=== PATIENT | female | born 1990 | race Caucasian/White ===

== ENCOUNTER 2017-03-08 02:06 | Emergency (ER) | payer BC ==
[2017-03-08] MEDS ORDERED: Sodium Chloride 0.9% 10 ML Syringe FLUSH PRN (02:50)
[2017-03-08] MEDS ORDERED: diphenhydrAMINE 50 MG/ML SDV IVPUSH PRN (02:52)
[2017-03-08] MEDS ORDERED: Metoclopramide 10 MG/2 ML SDV IVPUSH ONE (02:53)
[2017-03-08] MEDS ORDERED: Ketorolac 30 MG/ML SDV IVPUSH ONE (02:54)
[2017-03-08] MEDS ORDERED: Sodium Chloride 0.9% 1,000 ML IV SCH (03:15)
[2017-03-08 04:13] VITALS: BP 124/82
[2017-03-08] MEDS ORDERED: LORazepam 1 MG Tab PO ONE (05:04)
--- NOTE | 2017-03-11 13:48 | ER ---
DATE SEEN: 03/08/2017 CHIEF COMPLAINT: Headache. HISTORY OF PRESENT ILLNESS: This single, nonsmoking 26-year-old had onset of headache at 2300 hours this evening. It is 8/10 in intensity. Generalized headache. Does not compromise her vision. She had mild associated nausea. Denies recent trauma, increased social stresses, difficulty sleeping, neck stiffness, sore throat, sinusitis, eye pain, blurred vision, teichopsia, or visual complaints including blurred vision, photophobia or phonophobia, shortness of breath, fast heart rate, flushing, weakness, paresis, numbness, or sensory changes in her body. Last headache was approximately September 2016. She does not have any menstrual period currently. Her menses are regular. PAST MEDICAL HISTORY: Significant for anti-depressant and occasional difficulty with sleep. MEDICATIONS: 1. Zaleplon 10 mg at bedtime. 2. Cymbalta 90 mg daily. REVIEW OF SYSTEMS: Otherwise negative. PHYSICAL EXAMINATION: VITAL SIGNS: Blood pressure 137/84, heart rate 74, respirations 20, oxygen saturation 100%, and temperature 34.7 degrees centigrade. Repeat temperature is 36.4 degrees centigrade. BMI 31.9 (95.254 kg). GENERAL: Alert patient, in mild distress. HEENT: PERRLA intact. Pharynx without abnormality. No dry mucosa. No thyromegaly. No cervical adenopathy. Mild facial acne with recent manipulation of comedones. No nasal redness. NECK: Supple. LUNGS: Clear to auscultation without rales, rhonchi, or wheezes. HEART: S1, S2. No murmur. No irregular rate and rhythm. ABDOMEN: Soft. No guarding. No abdominal discomfort. Mild increased abdominal girth. EXTREMITIES: Lower extremities without tenderness or vascular structures. NEUROLOGIC: Deep tendon reflexes in upper and lower extremities symmetrical, 1+. Normoactive. Cranial nerves II through XII intact. Oriented x3. No past-pointing. No dysmetria. No pronator drift and Romberg is negative. Gait is appropriate. Balance is good. ASSESSMENT: Migraine. PLAN: The patient was treated with IV Reglan 10 mg, Toradol 10 mg, Benadryl 50 mg IV. The patient tolerated this well. She had a 1000 mL normal saline. Headache went down to a 1/10 in intensity. She was grateful. She was dismissed with medication to use in the future, Reglan 10 mg p.o., Toradol 10 mg p.o., Benadryl [id number] 50 mg p.o., take 3 tablets stat onset of headache and rest. She is advised to drink 2 L of water a day and get plenty of sleep and modulate stresses. Follow up with doctor in a week, earlier if worse. Also, there was a delay in discharging the patient as there was glitch in the computers, I was unable to get on the computers for 10 plus minutes. /[id number] SU/PHUC
== END 2017-03-08 04:20 | disposition home or self-care (01) ==
LOC: FB.ED 02:06
DX: G43.909 Migraine, unspecified, not intractable, without status migrainosus (principal); Z79.899 Other long term (current) drug therapy
CPT/HCPCS: 96361; 96374; 96375; 99284; J1200; J1885; J2765; J7040; J7050

== ENCOUNTER 2019-02-08 21:45 | Emergency (ER) | payer MEDICAID ==
[2019-02-08] MEDS ORDERED: HYDROmorphone 2 MG/ML SDV IVPUSH ONE (22:03)
[2019-02-08] MEDS ORDERED: Ondansetron 4 MG/2 ML SDV IVPUSH ONE (22:03)
--- NOTE | 2019-02-08 22:03 | EDM.PDOC ---
ED HPI GENERAL MEDICAL PROBLEM - General Chief Complaint: Headache Stated Complaint: MIGRAINE Time Seen by Provider: 02/08/19 21:55 - History of Present Illness INITIAL COMMENTS - FREE TEXT/NARRATIVE: pt c/o sever bilateral throbbing HAs, similar to usual migraine that she gets about once every 2 weeks, pt report nausea, no emeis, denies fever chills neck stiffness or any other associated sx or concerns. pt has been working closely with her PCP , was prescribed Zomeg which worked for her but she does not have it as its not covered by her insurance. - Related Data Allergies Allergy/AdvReac Type Severity Reaction Status Date / Time No Known Allergies Allergy Verified 03/08/17 02:17 Home Meds: Home Meds .Bariatric Adv Calcium/D3 1 dose PO ASDIRECTED 02/08/19 [History] ClonazePAM [KlonoPIN] 0.5 mg PO ASDIRECTED 02/08/19 [History] DULoxetine [Cymbalta] 120 mg PO DAILY 02/08/19 [History] Gabapentin [Neurontin] 100 mg PO 02/08/19 [History] Gabapentin [Neurontin] 300 mg PO BEDTIME 02/08/19 [History] Topiramate 100 mg PO BID 02/08/19 [History] busPIRone [Buspar] 20 mg PO DAILY 02/08/19 [History] busPIRone [Buspar] 30 mg PO BEDTIME 02/08/19 [History] Past Medical History Musculoskeletal History: Reports: Back Pain, Chronic, Fibromyalgia, Neck Pain, Chronic, Other (See Below) Other Musculoskeletal History: Anklylosing spondylitis of lumbosacral region Neurological History: Reports: Headaches, Chronic Social & Family History - Caffeine Use Caffeine Use: Reports: Coffee, Soda ED ROS GENERAL - Review of Systems Review Of Systems: See Below Constitutional: Denies: Fever, Chills HEENT: Reports: No Symptoms Respiratory: Reports: No Symptoms Cardiovascular: Reports: No Symptoms GI/Abdominal: Reports: No Symptoms Musculoskeletal: Reports: No Symptoms Neurological: Reports: Headache. Denies: Dizziness, Seizure, Syncope, Tingling , Trouble Speaking, Difficulty Walking, Change in Speech, Gait Disturbance - Physical Exam Exam: See Below Exam Limited By: No Limitations General Appearance: Alert, Moderate Distress Eye Exam: Bilateral Eye: Normal Inspection Ears: Normal External Exam, Normal Canal Nose: Normal Inspection, Normal Mucosa Throat/Mouth: Normal Inspection Head Exam: Atraumatic, Normocephalic. No: Facial Swelling, Facial Tenderness, Sinus Tenderness Neck: Normal Inspection, Supple, Non-Tender Respiratory/Chest: No Respiratory Distress, Lungs Clear Cardiovascular: Normal Peripheral Pulses, Regular Rate, Rhythm GI/Abdominal: Normal Bowel Sounds, Soft, Non-Tender Rectal (Female) Exam: Other Neuro Exam (Abbreviated): Alert, Oriented, CN II-XII Intact, Normal Gait, Normal Reflexes, No Motor/Sensory Deficits Course - Vital Signs Text/Narrative:: pt has recurrent migrain, was given NS 1 letter , dilaudid 1 mg and zofran , pt feels comfortable after this. - Orders/Labs/Meds Orders: Active Orders 24 hr Category Date Time Status Sodium Chloride 0.9% [Normal Saline] 1,000 ml Med 02/08/19 22:15 Active IV ASDIRECTED Sodium Chloride 0.9% [Saline Flush] Med 02/08/19 22:25 Active 10 ml FLUSH ASDIRECTED PRN Medication Orders Sodium Chloride (Normal Saline) 1,000 mls @ 999 mls/hr IV ASDIRECTED TRISTON Last Admin: 02/08/19 22:30 Dose: 999 mls/hr Sodium Chloride (Saline Flush) 10 ml FLUSH ASDIRECTED PRN PRN Reason: Keep Vein Open Last Admin: 02/08/19 22:25 Dose: 10 ml Meds: Medications Generic Name Dose Route Start Last Admin Trade Name Freq PRN Reason Stop Dose Admin Sodium Chloride 1,000 mls @ 999 mls/hr 02/08/19 22:15 02/08/19 22:30 Normal Saline IV 999 mls/hr ASDIRECTED TRISTON Administration Sodium Chloride 10 ml 02/08/19 22:25 02/08/19 22:25 Saline Flush FLUSH 10 ml ASDIRECTED PRN Administration Keep Vein Open Discontinued Medications Generic Name Dose Route Start Last Admin Trade Name Freq PRN Reason Stop Dose Admin Hydromorphone HCl 1 mg 02/08/19 22:03 02/08/19 22:25 Dilaudid IVPUSH 02/08/19 22:04 1 mg ONETIME ONE Administration Ondansetron HCl 4 mg 02/08/19 22:03 02/08/19 22:35 Zofran IVPUSH 02/08/19 22:04 4 mg ONETIME ONE Administration Departure - Departure Time of Disposition: 22:55 Disposition: Home, Self-Care 01 Clinical Impression: Migraine - Discharge Information Referrals: PCP,Not In Area [Primary Care Provider] - Forms: ED Department Discharge - Problem List & Annotations (1) Migraine SNOMED Code(s): 87065610 Code(s): G43.909 - MIGRAINE, UNSP, NOT INTRACTABLE, WITHOUT STATUS MIGRAINOSUS Status: Acute Current Visit: Yes - My Orders Last 24 Hours: My Active Orders 02/08/19 22:15 Sodium Chloride 0.9% [Normal Saline] 1,000 ml IV ASDIRECTED 02/08/19 22:25 Sodium Chloride 0.9% [Saline Flush] 10 ml FLUSH ASDIRECTED PRN - Assessment/Plan Last 24 Hours: My Active Orders 02/08/19 22:15 Sodium Chloride 0.9% [Normal Saline] 1,000 ml IV ASDIRECTED 02/08/19 22:25 Sodium Chloride 0.9% [Saline Flush] 10 ml FLUSH ASDIRECTED PRN
[2019-02-08] MEDS ORDERED: Sodium Chloride 0.9% 1,000 ML IV SCH (22:15)
[2019-02-08] MEDS ORDERED: Sodium Chloride 0.9% 10 ML Syringe FLUSH PRN (22:25)
[2019-02-08 23:38] VITALS: BP 129/72
== END 2019-02-08 23:50 | disposition home or self-care (01) ==
LOC: FB.ED 21:45
DX: G43.909 Migraine, unspecified, not intractable, without status migrainosus (principal); Z79.899 Other long term (current) drug therapy
CPT/HCPCS: 96361; 96374; 96375; 99283; J1170; J2405; J7030

== ENCOUNTER 2021-04-01 19:24 | Emergency (ER) | payer MEDICARE, MEDICAID ==
[2021-04-01 19:34] VITALS: BP 134/88; PULSE 94
--- NOTE | 2021-04-01 20:08 | EDM.PDOC ---
ED HPI GENERAL MEDICAL PROBLEM - General Chief Complaint: Lower Extremity Injury/Pain Stated Complaint: BROKEN ANKLE. Time Seen by Provider: 04/01/21 19:35 Source of Information: Reports: Patient History Limitations: Reports: No Limitations - History of Present Illness INITIAL COMMENTS - FREE TEXT/NARRATIVE: Patient presented to the ED because of a right ankle and foot injury. She was apparently going downstairs and twisted her rt ankle and foot. She c/7/10 pain that is worse with ambulation. Right Ankle Pain Score (Numeric/FACES): 4 - Related Data Allergies Allergy/AdvReac Type Severity Reaction Status Date / Time hydromorphone Allergy Headache Verified 04/01/21 19:30 Home Meds: Home Meds .Bariatric Adv Calcium/D3 1 dose PO ASDIRECTED 02/08/19 [History] .Co Q 10 1 dose PO DAILY 02/08/19 [History] .Zyrtec Allergy 1 dose PO DAILY 02/08/19 [History] Adalimumab [Humira(Cf)] 1 dose SUBCUT ASDIRECTED 02/08/19 [History] ClonazePAM [KlonoPIN] 0.5 mg PO DAILY PRN 02/08/19 [History] DULoxetine [Cymbalta] 120 mg PO DAILY 02/08/19 [History] Fluticasone Propionate [Flonase] 1 spray NASBOTH BID 02/08/19 [History] Gabapentin [Neurontin] 100 mg PO 12,02/08/19 [History] Gabapentin [Neurontin] 300 mg PO 22 02/08/19 [History] Meloxicam 15 mg PO DAILY 02/08/19 [History] Topiramate 100 mg PO BID 02/08/19 [History] Vitamin B Complex 1 tab PO DAILY 02/08/19 [History] busPIRone [Buspar] 20 mg PO DAILY 02/08/19 [History] busPIRone [Buspar] 30 mg PO BEDTIME 02/08/19 [History] Past Medical History Musculoskeletal History: Reports: Back Pain, Chronic, Fibromyalgia, Neck Pain, Chronic, Other (See Below) Other Musculoskeletal History: Anklylosing spondylitis of lumbosacral region Neurological History: Reports: Headaches, Chronic Social & Family History - Tobacco Use Tobacco Use Status *Q: Never Tobacco User - Caffeine Use Caffeine Use: Reports: Coffee, Soda - Recreational Drug Use Recreational Drug Use: No Review of Systems - Review of Systems Review Of Systems: See Below Constitutional: Reports: No Symptoms Eyes: Reports: No Symptoms Ears: Reports: No Symptoms Nose: Reports: No Symptoms Mouth/Throat: Reports: No Symptoms Respiratory: Reports: No Symptoms Cardiovascular: Reports: No Symptoms GI/Abdominal: Reports: No Symptoms Genitourinary: Reports: No Symptoms Musculoskeletal: Reports: Joint Pain Skin: Reports: No Symptoms Neurological: Reports: No Symptoms Psychiatric: Reports: No Symptoms ED EXAM, GENERAL - Physical Exam Exam: See Below Exam Limited By: No Limitations General Appearance: Alert, No Apparent Distress Eye Exam: Bilateral Eye: PERRL Ears: Normal External Exam, Normal Canal Nose: Normal Inspection, Normal Mucosa, No Blood Throat/Mouth: Normal Inspection, Normal Lips, Normal Teeth Head: Atraumatic, Normocephalic Neck: Normal Inspection, Supple, Non-Tender, Full Range of Motion Respiratory/Chest: No Respiratory Distress, Lungs Clear, Normal Breath Sounds Cardiovascular: Normal Peripheral Pulses, Regular Rate, Rhythm, No Edema, No Gallop GI/Abdominal: Normal Bowel Sounds, Soft, Non-Tender Back Exam: Normal Inspection, Full Range of Motion Extremities: Normal Inspection, Normal Range of Motion, Other (tenderness Rt 5th metatarsal area and lateral aspect of right ankle) Neurological: Alert, Oriented, CN II-XII Intact Psychiatric: Normal Affect, Normal Mood Course - Vital Signs Text/Narrative:: Xray RT ankle/foot-Rt 5th metatarsal fracture-see result Crutches and air cast applied by ED RN Last Recorded V/S: Last Vital Signs Temp 36.4 C 04/01/21 19:30 Pulse 94 04/01/21 19:30 Resp 18 04/01/21 19:30 BP 134/88 04/01/21 19:30 Pulse Ox 99 04/01/21 19:30 Departure - Departure Time of Disposition: 20:10 Disposition: Home, Self-Care 01 Condition: Good Clinical Impression: Metatarsal bone fracture - Discharge Information Instructions: Ankle Sprain, [id number], Metatarsal Fracture Referrals: Rose Mary Jain [employer] [Primary Care Provider] - Forms: ED Department Discharge Additional Instructions: Please read discharge instructions on metatarsal fracture Use your crutches at all times Do not step on your right foot until the pain is completely gone Take ibuprofen 800 mg with tylenol 1000 mg every 8 hours as needed for pain We will call you tomorrow if there is any changes on your xray reading Follow up with Ortho at [place] Sepsis Event Note (ED) - Evaluation Sepsis Screening Result: No Definite Risk
--- NOTE | 2021-04-02 13:04 | CR ---
INDICATION: Stepped wrong with right foot and ankle injury. RIGHT ANKLE [id number]: Three views of the right ankle were obtained 04/01/21-no comparison. The ankle mortise appeared to be intact with fairly symmetrical joint space. The talar dome appears to be intact. Minimal soft tissue swelling may be present along the medial malleolus. A definite acute fracture or dislocation was not identified. If symptoms persist-if occult fracture site is suspected clinically, re- examination in 10 to 14 days may be helpful. MTDD
--- NOTE | 2021-04-02 13:09 | CR ---
INDICATION: Lateral foot pain after injury. RIGHT FOOT: Three views of the right foot were obtained 04/01/21 and revealed hairline fracture transversely through the proximal metaphysis of the fifth metatarsal, which extends through the joint surface, but shows no significant deformity. No other bone or joint abnormality was identified. IMPRESSION: Fifth metatarsal fracture site in good position and alignment. MTDD
== END 2021-04-01 20:33 | disposition home or self-care (01) ==
LOC: FB.ED 19:24
DX: S92.351A Displaced fracture of fifth metatarsal bone, right foot, initial encounter for closed fracture (principal); Z88.5 Allergy status to narcotic agent; X50.1XXA Overexertion from prolonged static or awkward postures, initial encounter
CPT/HCPCS: 73610-RT; 73630-RT; 99283-25

== ENCOUNTER 2021-04-13 03:19 | Emergency (ER) | payer MEDICARE, MEDICAID ==
--- NOTE | 2021-04-13 04:15 | EDM.PDOC ---
ED HPI GENERAL MEDICAL PROBLEM - General Chief Complaint: Back Pain or Injury Stated Complaint: side/back pain Time Seen by Provider: 04/13/21 03:45 Source of Information: Reports: Patient History Limitations: Reports: No Limitations - History of Present Illness INITIAL COMMENTS - FREE TEXT/NARRATIVE: c/o L side pain x 6h at 9p last night pt has had pain in her L side, no cramping, no radiation, gotten worse, no BM yesterday and she took Miralax that her sister had, still no BM no h/o constipation LMP 2w ago, 4d flow as usual, no BC, regular, monthly no vag d/c, no dysuria fell 1w ago, XR L foot neg, went to ortho in [place], pt says she has a fx in her 5th MT, on crutches x 1w with a compression sock (no splint, no cast), changed yesterday to a walking boot MPMP neg x last year except gabapentin which she fills 60 tabs, 300 mg monthly PCP Rose Mary Jain [employer] HEL[employer] in [place] MEDS: includes duloxetine, buspar, topiramate, meloxicam, gabapentin PMH: includes fibromyalgia Left Back Pain Score (Numeric/FACES): 10 - Related Data Allergies Allergy/AdvReac Type Severity Reaction Status Date / Time hydromorphone Allergy Headache Verified 04/01/21 19:30 suvorexant [From Belsomra] Allergy Nausea Verified 04/13/21 03:41 Home Meds: Home Meds .Bariatric Adv Calcium/D3 1 dose PO ASDIRECTED 02/08/19 [History] .Co Q 10 1 dose PO DAILY 02/08/19 [History] .Zyrtec Allergy 1 dose PO DAILY 02/08/19 [History] DULoxetine [Cymbalta] 120 mg PO DAILY 02/08/19 [History] Gabapentin [Neurontin] 100 mg PO ,02/08/19 [History] Gabapentin [Neurontin] 300 mg PO 22 02/08/19 [History] Meloxicam 15 mg PO DAILY 02/08/19 [History] Topiramate 100 mg PO BID 02/08/19 [History] Vitamin B Complex 1 tab PO DAILY 02/08/19 [History] busPIRone [Buspar] 20 mg PO DAILY 02/08/19 [History] busPIRone [Buspar] 30 mg PO BEDTIME 02/08/19 [History] Hydrocodone/Acetaminophen [HYDROcodone-Acetaminophen 5-325 MG] 1 each PO Q6H #12 tablet 04/13/21 [Rx] Ketorolac [Toradol] 10 mg PO QID #20 tab 04/13/21 [Rx] Past Medical History - Past Health History Medical/Surgical History: Denies Medical/Surgical History Musculoskeletal History: Reports: Back Pain, Chronic, Fibromyalgia, Neck Pain, Chronic, Other (See Below) Other Musculoskeletal History: Anklylosing spondylitis of lumbosacral region Neurological History: Reports: Headaches, Chronic - Past Surgical History Other Musculoskeletal Surgeries/Procedures:: Broke 5th metatarsal Social & Family History - Family History Family Medical History: No Pertinent Family History - Tobacco Use Tobacco Use Status *Q: Never Tobacco User - Caffeine Use Caffeine Use: Reports: Soda - Recreational Drug Use Recreational Drug Use: No ED ROS GENERAL - Review of Systems Review Of Systems: See Below Constitutional: Reports: No Symptoms HEENT: Reports: No Symptoms Respiratory: Reports: No Symptoms Cardiovascular: Reports: No Symptoms Endocrine: Reports: No Symptoms GI/Abdominal: Reports: Abdominal Pain. Denies: Nausea, Vomiting : Reports: No Symptoms Musculoskeletal: Reports: No Symptoms Skin: Reports: No Symptoms Neurological: Reports: No Symptoms Psychiatric: Reports: No Symptoms Hematologic/Lymphatic: Reports: No Symptoms Immunologic: Reports: No Symptoms ED EXAM, GI/ABD - Physical Exam Exam: See Below Exam Limited By: No Limitations General Appearance: Alert, WD/WN Throat/Mouth: Perioral Cyanosis Head: Atraumatic Neck: Normal Inspection Respiratory/Chest: No Respiratory Distress Cardiovascular: Regular Rate, Rhythm GI/Abdominal Exam: Other (inc'd adipose tissue, abd nontender throughout, L flank NT to deep palp, no CVAT b/l, no spine tender, sat/stood/walk/lay without hesitation or difficulty) Extremities: Normal Inspection, Non-Tender, No Pedal Edema Neurological: Alert, Oriented, CN II-XII Intact, Normal Cognition, No Motor/Sensory Deficits Skin Exam: Warm, Dry, Intact, Normal Color, No Rash Lymphatic: No Adenopathy Course - Vital Signs Last Recorded V/S: Last Vital Signs Temp 36.9 C 04/13/21 03:30 Pulse 90 07/23/21 03:30 Resp 16 04/13/21 03:30 BP 149/87 H 04/13/21 03:30 Pulse Ox 100 04/13/21 03:30 - Orders/Labs/Meds Orders: Active Orders 24 hr Category Date Time Status Abdomen 2V AP Flat Upright [CR] Stat Exams 04/13/21 04:06 Taken Abdomen Pelvis w Cont [CT] Stat Exams 04/13/21 05:09 Taken Labs: Laboratory Tests 04/13/21 04/13/21 04/13/21 Range/Units 03:40 04:24 04:24 WBC 11.9 H (3.0-10.3) x10-3/uL RBC 4.05 (3.60-5.20) x10(6)uL Hgb 11.2 L (11.4-15.5) g/dL Hct 35.1 (34.2-48.2) % MCV 86.5 (76.7-100.5) fL MCH 27.6 (23.9-33.9) pg MCHC 31.9 (31.9-34.8) g/dL RDW 16.0 (12.3-16.5) % Plt Count 305 (151-488) x10(3)uL MPV 7.7 (7.1-12.4) fL Neut % (Auto) 74.6 (30.8-76.2) % Lymph % (Auto) 13.1 L (18.4-52.1) % [place] % (Auto) 10.6 (4.4-15.7) % Eos % (Auto) 1.0 (0.6-8.1) % Baso % (Auto) 0.7 (0.2-1.5) % Neut # (Auto) 8.9 H (1.5-6.3) x10-3/uL Lymph # (Auto) 1.6 (1.0-4.4) x10-3/uL [place] # (Auto) 1.3 H (0.3-1.0) x10-3/uL Eos # (Auto) 0.1 (0.0-0.8) x10-3/uL Baso # (Auto) 0.1 (0.0-0.1) x10-3/uL Sodium 126 L D (135-145) mmol/L Potassium 3.7 (3.5-5.3) mmol/L Chloride 100 D (100-110) mmol/L Carbon Dioxide 23 (21-32) mmol/L BUN 10 (7-18) mg/dL Creatinine 1.2 H (0.55-1.02) mg/dL Est Cr Clr Drug Dosing 67.89 mL/min Estimated GFR (MDRD) 52 L (>60) BUN/Creatinine Ratio 8.3 L (9-20) Glucose 117 H (80-116) mg/dL Calcium 8.8 (8.6-10.2) mg/dL Total Bilirubin 0.3 (0.1-1.3) mg/dL AST 28 H (5-25) IU/L ALT 65 H (12-36) U/L Alkaline Phosphatase 63 (56-112) IU/L C-Reactive Protein (0.5-0.9) mg/dL Total Protein 7.2 (6.0-8.0) g/dL Albumin 3.7 (3.5-5.2) g/dL Globulin 3.5 g/dL Albumin/Globulin Ratio 1.1 Urine Color Yellow (YELLOW) Urine Appearance Clear (CLEAR) Urine pH 7.0 H (5.0-6.5) Ur Specific [place] 1.015 (1.010-1.025) Urine Protein Negative (NEGATIVE) mg/dL Urine Glucose (UA) Normal (NORMAL) mg/dL Urine Ketones Negative (NEGATIVE) mg/dL Urine Occult Blood Moderate H (NEGATIVE) Urine Nitrite Negative (NEGATIVE) Urine Bilirubin Negative (NEGATIVE) Urine Urobilinogen Normal (NEGATIVE) mg/dL Ur Leukocyte Esterase Negative (NEGATIVE) Urine RBC 0-5 (0-5) Urine WBC 0-5 (0-5) Ur Squamous Epith Cells Few H (NS,R,O) Urine Bacteria Few H (NS) 04/13/21 Range/Units 04:24 WBC (3.0-10.3) x10-3/uL RBC (3.60-5.20) x10(6)uL Hgb (11.4-15.5) g/dL Hct (34.2-48.2) % MCV (76.7-100.5) fL MCH (23.9-33.9) pg MCHC (31.9-34.8) g/dL RDW (12.3-16.5) % Plt Count (151-488) x10(3)uL MPV (7.1-12.4) fL Neut % (Auto) (30.8-76.2) % Lymph % (Auto) (18.4-52.1) % [place] % (Auto) (4.4-15.7) % Eos % (Auto) (0.6-8.1) % Baso % (Auto) (0.2-1.5) % Neut # (Auto) (1.5-6.3) x10-3/uL Lymph # (Auto) (1.0-4.4) x10-3/uL [place] # (Auto) (0.3-1.0) x10-3/uL Eos # (Auto) (0.0-0.8) x10-3/uL Baso # (Auto) (0.0-0.1) x10-3/uL Sodium (135-145) mmol/L Potassium (3.5-5.3) mmol/L Chloride (100-110) mmol/L Carbon Dioxide (21-32) mmol/L BUN (7-18) mg/dL Creatinine (0.55-1.02) mg/dL Est Cr Clr Drug Dosing mL/min Estimated GFR (MDRD) (>60) BUN/Creatinine Ratio (9-20) Glucose (80-116) mg/dL Calcium (8.6-10.2) mg/dL Total Bilirubin (0.1-1.3) mg/dL AST (5-25) IU/L ALT (12-36) U/L Alkaline Phosphatase (56-112) IU/L C-Reactive Protein < 0.2 L (0.5-0.9) mg/dL Total Protein (6.0-8.0) g/dL Albumin (3.5-5.2) g/dL Globulin g/dL Albumin/Globulin Ratio Urine Color (YELLOW) Urine Appearance (CLEAR) Urine pH (5.0-6.5) Ur Specific [place] (1.010-1.025) Urine Protein (NEGATIVE) mg/dL Urine Glucose (UA) (NORMAL) mg/dL Urine Ketones (NEGATIVE) mg/dL Urine Occult Blood (NEGATIVE) Urine Nitrite (NEGATIVE) Urine Bilirubin (NEGATIVE) Urine Urobilinogen (NEGATIVE) mg/dL Ur Leukocyte Esterase (NEGATIVE) Urine RBC (0-5) Urine WBC (0-5) Ur Squamous Epith Cells (NS,R,O) Urine Bacteria (NS) Meds: Medications Discontinued Medications Generic Name Dose Route Start Last Admin Trade Name Freq PRN Reason Stop Dose Admin Diphenhydramine HCl 25 mg 04/13/21 05:09 04/13/21 06:00 Diphenhydramine 50 Mg/Ml Sdv IVPUSH 04/13/21 05:10 25 mg ONETIME ONE Administration Sodium Chloride 1,000 mls @ 999 mls/hr 04/13/21 05:08 04/13/21 06:02 Normal Saline IV 04/13/21 06:08 999 mls/hr .BOLUS ONE Administration Iopamidol 128 ml 04/13/21 05:31 04/13/21 06:04 Iopamidol 755 Mg/Ml 150 Ml Bottle IV 04/13/21 05:32 128 ml ONETIME ONE Administration Ketorolac Tromethamine 15 mg 04/13/21 05:09 04/13/21 06:00 Ketorolac 30 Mg/Ml Sdv IVPUSH 04/13/21 05:10 15 mg ONETIME ONE Administration - Re-Assessments/Exams Free Text/Narrative Re-Assessment/Exam: 04/13/21 06:58 3 mm L UVJ stone on CT, pain not at LLQ but at L flank c/w hydro, stone likely has been than several days to cause obstruction, only 0-5 rbc in urine, somewhat atypical presentation, no previous h/o kidney stones no infection pt taking 2 Aleve/d for foot, not taking meloxicam take gabapentin for fibromyalgia reason for low Na not entirely clear, given NS here Departure - Departure Time of Disposition: 06:48 Disposition: Home, Self-Care 01 Condition: Good Clinical Impression: Left ureteral stone, Hydronephrosis, left, Renal colic on left side, Acute renal insufficiency, Cholelithiasis - Discharge Information *PRESCRIPTION DRUG MONITORING PROGRAM REVIEWED*: Yes *COPY OF PRESCRIPTION DRUG MONITORING REPORT IN PATIENT MIKE: No Prescriptions: Hydrocodone/Acetaminophen [HYDROcodone-Acetaminophen 5-325 MG] 1 each PO Q6H #12 tablet Ketorolac [Toradol] 10 mg PO QID #20 tab Instructions: Kidney Stones, Renal Colic, Cholelithiasis Referrals: Rose Mary Jain, [employer] [Primary Care Provider] - Forms: ED Department Discharge Additional Instructions: Screen the urine, save the stone when it passes and take it in to show your physician. Stop taking the Aleve. For pain and spasm, take ketorolac 10 mg 1 tab 4 times a day until the stone passes. For pain, take hydrocodone with acetaminophen 5/325 mg 1 tab every 6 hours as needed. No alcohol. Increase fluids. Use moist heat in tub or shower for 10 minutes every 2 hours as needed. See your doctor in 4 days for further evaluation and possible refer to urology. Return to Emergency Department if you are feeling worse or develop additional symptoms. Sepsis Event Note (ED) - Evaluation Sepsis Screening Result: No Definite Risk - Focused Exam Vital Signs: Vital Signs Temp Pulse Resp BP Pulse Ox 04/13/21 03:30 36.9 C 90 16 149/87 H 100 - My Orders Last 24 Hours: My Active Orders 04/13/21 04:06 Abdomen 2V AP Flat Upright [CR] Stat 04/13/21 05:09 Abdomen Pelvis w Cont [CT] Stat - Assessment/Plan Last 24 Hours: My Active Orders 04/13/21 04:06 Abdomen 2V AP Flat Upright [CR] Stat 04/13/21 05:09 Abdomen Pelvis w Cont [CT] Stat
[2021-04-13] MEDS ORDERED: Sodium Chloride 0.9% 1,000 ML IV ONE (05:08)
[2021-04-13] MEDS ORDERED: diphenhydrAMINE 50 MG/ML SDV IVPUSH ONE (05:09)
[2021-04-13] MEDS ORDERED: Ketorolac 30 MG/ML SDV IVPUSH ONE ×2 (05:09→06:54)
[2021-04-13] MEDS ORDERED: Iopamidol 755 MG/ML 150 ML Bottle IV ONE (05:31)
[2021-04-13] MEDS ORDERED: Morphine 2 MG/ML SYRINGE IVPUSH ONE (06:53)
[2021-04-13 07:34] VITALS: BP 157/92; PULSE 78
--- NOTE | 2021-04-13 10:44 | CR ---
INDICATION: Pain in left flank. Question constipation. ABDOMEN, TWO-VIEW: Four images of the abdomen were obtained in supine and upright projections 04/13/21 - no comparisons. No evidence of free air or definite mechanical obstruction was identified with a few scattered air-fluid levels and no significant bowel distention. No definite organomegaly or mass lesions were identified. Dextroconcave slightly rotatory scoliosis of the lower middle lumbar spine is noted. IMPRESSION: Nonacute abdomen. MTDD
== END 2021-04-13 07:32 | disposition home or self-care (01) ==
LOC: FB.ED 03:19
DX: N13.2 Hydronephrosis with renal and ureteral calculous obstruction (principal); K80.20 Calculus of gallbladder without cholecystitis without obstruction; N28.9 Disorder of kidney and ureter, unspecified; E87.1 Hypo-osmolality and hyponatremia; Z88.5 Allergy status to narcotic agent; Z88.8 Allergy status to other drugs, medicaments and biological substances; Z79.899 Other long term (current) drug therapy
CPT/HCPCS: 36415; 74019; 74177; 80053; 81001; 85025; 86140; 96374; 96375; 96376; 99284; J1200; J1885; J2270; J7030; Q9967

== ENCOUNTER 2023-03-27 04:56 | Emergency (ER) | payer MEDICARE, MEDICAID ==
[2023-03-27 05:38] LABS: BILIRUBIN,URINE SMALL (NEGATIVE); GLUCOSE,URINE NORMAL (NORMAL); KETONES,URINE NEGATIVE (NEGATIVE); LEUKOCYTE ESTERASE,URINE NEGATIVE (NEGATIVE); NITRITE,URINE NEGATIVE (NEGATIVE); OCCULT BLOOD,URINE LARGE (NEGATIVE); PROTEIN,URINE NEGATIVE (NEGATIVE); UROBILINOGEN,URINE 1 mg/dL (NEGATIVE)
[2023-03-27 05:44] LABS: APPEARANCE,URINE SLIGHTLY CLOUDY (CLEAR); BACTERIA,URINE FEW (NS); CALCIUM OXALATE CRYSTALS,URINE OCCASIONAL (NS); COLOR,URINE YELLOW (YELLOW); SQUAMOUS EPITHELIAL CELLS,UR OCCASIONAL (NS,R,O); WBC,URINE 0-5 (0-5)
[2023-03-27 05:59] LABS: BASOPHILS ABSOLUTE AUTO 0.1 x10-3/uL (0.0-0.1); BASOPHILS PERCENT AUTO 0.7 % (0.2-1.5); EOSINOPHILS ABSOLUTE AUTO 0.2 x10-3/uL (0.0-0.8); EOSINOPHILS PERCENT AUTO 2.2 % (0.6-8.1); HEMATOCRIT 36.8 % (34.2-48.2); HEMOGLOBIN 11.9 g/dL (11.4-15.5); LYMPHOCYTES ABSOLUTE AUTO 3.5 x10-3/uL (1.0-4.4); LYMPHOCYTES PERCENT AUTO 38.8 % (18.4-52.1); MEAN CORPUSCULAR HEMOGLOBIN 27.7 pg (23.9-33.9); MEAN CORPUSCULAR HGB CONC 32.3 g/dL (31.9-34.8); MEAN CORPUSCULAR VOLUME 85.7 fL (76.7-100.5); MEAN PLATELET VOLUME 7.7 fL (7.1-12.4); MONOCYTES PERCENT AUTO 11.2 % (4.4-15.7); NEUTROPHILS ABSOLUTE AUTO 4.2 x10-3/uL (1.5-6.3); NEUTROPHILS PERCENT AUTO 47.1 % (30.8-76.2); PLATELET COUNT,PLT 318 x10(3)uL (151-488); RED BLOOD CELL COUNT 4.29 x10(6)uL (3.60-5.20); RED CELL DISTRIBUTION WIDTH 15.1 % (12.3-16.5); WHITE BLOOD CELL COUNT,WBC 8.9 x10-3/uL (3.0-10.3)
[2023-03-27 06:05] LABS: BLOOD UREA NITROGEN,BUN 8 mg/dL (7-18); BUN/CREATININE RATIO 8.9 (9-20); CARBON DIOXIDE,CO2 25 mmol/L (21-32); CHLORIDE,CL 105 mmol/L (100-110); CREATININE 0.9 mg/dL (0.55-1.02); ESTIMATED GFR 86 mL/min (>60); GLUCOSE RANDOM 98 mg/dL (80-116); POTASSIUM,K 3.4 mmol/L (3.5-5.3); SODIUM,NA 140 mmol/L (135-145)
[2023-03-27] MEDS ORDERED: Ketorolac 30 MG/ML SDV IM ONE (06:10)
[2023-03-27 06:34] VITALS: BP 145/101; PULSE 91
== END 2023-03-27 08:05 | disposition home or self-care (01) ==
LOC: FB.ED 04:56
DX: N20.1 Calculus of ureter (principal); N13.9 Obstructive and reflux uropathy, unspecified; Z88.5 Allergy status to narcotic agent; Z88.8 Allergy status to other drugs, medicaments and biological substances
CPT/HCPCS: 36415; 74176; 80048; 81001; 81025; 85025; 96372; 99284; J1885

== ENCOUNTER 2024-05-02 02:22 | Emergency (ER) | payer MEDICARE ==
[2024-05-02 02:40] VITALS: BP 141/100; PULSE 94
[2024-05-02] MEDS: Ketorolac 30 MG/ML SDV IM ONE (02:52)
[2024-05-02] MEDS: hydrOXYzine HCl 50 MG/ML SDV IM ONE (02:53)
[2024-05-02] MEDS: diphenhydrAMINE 50 MG/ML SDV IM ONE (02:54)
== END 2024-05-02 03:11 | disposition home or self-care (01) ==
LOC: FB.ED 02:22
DX: G43.901 Migraine, unspecified, not intractable, with status migrainosus (principal); Z79.899 Other long term (current) drug therapy; Z88.5 Allergy status to narcotic agent; Z88.8 Allergy status to other drugs, medicaments and biological substances
CPT/HCPCS: 96372; 99283; J1200; J1885; J3410

== ENCOUNTER 2024-09-16 04:03 | Emergency (ER) | payer MEDICARE ==
[2024-09-16 04:42] VITALS: BP 132/97; PULSE 91
[2024-09-16] MEDS: Ondansetron 4 MG/2 ML SDV IVPUSH ONE (05:42)
[2024-09-16] MEDS: Ketorolac 30 MG/ML SDV IVPUSH ONE (05:43)
[2024-09-16 05:44] LABS: BLOOD UREA NITROGEN,BUN 15 mg/dL (7-18); BUN/CREATININE RATIO 13.6 (9-20); CALCIUM 8.7 mg/dL (8.6-10.2); CARBON DIOXIDE,CO2 23 mmol/L (21-32); CHLORIDE,CL 108 mmol/L (100-110); CREATININE 1.1 mg/dL (0.55-1.02); ESTIMATED GFR 67 mL/min (>60); GLUCOSE RANDOM 127 mg/dL (80-116); POTASSIUM,K 3.7 mmol/L (3.5-5.3); SODIUM,NA 143 mmol/L (135-145)
[2024-09-16 05:50] LABS: A/G RATIO 1.1; ALANINE AMINOTRANSFERASE,ALT 36 U/L (12-36); ALBUMIN 3.8 g/dL (3.5-5.2); ALKALINE PHOSPHATASE 67 IU/L (56-112); ASPARTATE AMNIOTRANSFERASE,AST 14 IU/L (5-25); BILIRUBIN TOTAL 0.3 mg/dL (0.1-1.3); PROTEIN TOTAL,TP 7.3 g/dL (6.0-8.0)
[2024-09-16] MEDS: Sodium Chloride 0.9% 1,000 ML IV ONE (05:51)
[2024-09-16 05:53] LABS: BASOPHILS ABSOLUTE AUTO 0.1 x10-3/uL (0.0-0.1); BASOPHILS PERCENT AUTO 0.4 % (0.2-1.5); EOSINOPHILS ABSOLUTE AUTO 0.1 x10-3/uL (0.0-0.8); EOSINOPHILS PERCENT AUTO 0.7 % (0.6-8.1); HEMATOCRIT 38.1 % (34.2-48.2); HEMOGLOBIN 12.3 g/dL (11.4-15.5); LYMPHOCYTES ABSOLUTE AUTO 1.5 x10-3/uL (1.0-4.4); LYMPHOCYTES PERCENT AUTO 13.4 % (18.4-52.1); MEAN CORPUSCULAR HEMOGLOBIN 28.9 pg (23.9-33.9); MEAN CORPUSCULAR HGB CONC 32.3 g/dL (31.9-34.8); MEAN CORPUSCULAR VOLUME 89.3 fL (76.7-100.5); MEAN PLATELET VOLUME 7.3 fL (7.1-12.4); MONOCYTES ABSOLUTE AUTO 0.9 x10-3/uL (0.3-1.0); MONOCYTES PERCENT AUTO 7.7 % (4.4-15.7); NEUTROPHILS ABSOLUTE AUTO 8.8 x10-3/uL (1.5-6.3); NEUTROPHILS PERCENT AUTO 77.8 % (30.8-76.2); PLATELET COUNT,PLT 384 x10(3)uL (151-488); RED BLOOD CELL COUNT 4.26 x10(6)uL (3.60-5.20); RED CELL DISTRIBUTION WIDTH 16.7 % (12.3-16.5); WHITE BLOOD CELL COUNT,WBC 11.3 x10-3/uL (3.0-10.3)
[2024-09-16 05:57] LABS: APPEARANCE,URINE CLEAR (CLEAR); BACTERIA,URINE RARE (NS); BILIRUBIN,URINE NEGATIVE (NEGATIVE); CALCIUM OXALATE CRYSTALS,URINE FEW (NS); COLOR,URINE YELLOW (YELLOW); GLUCOSE,URINE NORMAL (NORMAL); KETONES,URINE NEGATIVE (NEGATIVE); LEUKOCYTE ESTERASE,URINE NEGATIVE (NEGATIVE); NITRITE,URINE NEGATIVE (NEGATIVE); OCCULT BLOOD,URINE LARGE (NEGATIVE); PROTEIN,URINE NEGATIVE (NEGATIVE); RBC,URINE 30-40 (0-5); SQUAMOUS EPITHELIAL CELLS,UR OCCASIONAL (NS,R,O); UROBILINOGEN,URINE 1 mg/dL (NEGATIVE); WBC,URINE 0-5 (0-5)
[2024-09-16 05:58] LABS: YEAST,URINE FEW (NS)
[2024-09-16] MEDS: Tamsulosin 0.4 MG Cap.ER PO ONE (06:53)
== END 2024-09-16 07:28 | disposition home or self-care (01) ==
LOC: FB.ED 04:03
DX: N20.0 Calculus of kidney (principal); K80.20 Calculus of gallbladder without cholecystitis without obstruction; Z88.5 Allergy status to narcotic agent; Z88.8 Allergy status to other drugs, medicaments and biological substances; Z79.899 Other long term (current) drug therapy
CPT/HCPCS: 36415; 74176; 80053; 81001; 85025; 86140; 96361; 96374; 96375; 99284-25; A9270-GY; J1885; J2405; J7030